=== PATIENT | male | born 1945 | race Caucasian/White ===

== ENCOUNTER 2017-04-25 16:50 | Emergency (ER) | payer MEDICARE ==
[~2017-04-25 16:50] MED LIST: AMIL5 PO; ASMA220A IN; ASPI325T PO; COZA100T PO; FLOV44AE IN; ISOS60 PO; METO25 PO; METO50TA PO; MONT10TA2 PO; MULT1TAB46; POTA20IN3 PO; PRIL20CA PO; VITA500S3 SL
[2017-04-25] MEDS ORDERED: LOSA100T2 PO (17:12)
[2017-04-25] MEDS ORDERED: MONT10TA2 PO (17:12)
[2017-04-25] MEDS ORDERED: AMLO5 PO (17:12)
[2017-04-25] MEDS ORDERED: AMIL5 PO (17:12)
[2017-04-25] MEDS ORDERED: APIX5TAB PO (17:12)
[2017-04-25] MEDS ORDERED: METO50TA PO (17:12)
[2017-04-25] MEDS ORDERED: ISOS120T PO (17:12)
[2017-04-25] MEDS ORDERED: OMEP2.5S (17:12)
--- NOTE | 2017-04-25 17:18 | PD ---
HPI Chief Complaint: Injury Time Seen by Provider: 17:08 Travel History International Travel<30 days: No Contact w/Intl Traveler<30days: No Traveled to known affect area: No History of Present Illness HPI 72-year-old male complains of right fourth finger injury. Patient struck the right fourth finger against an object this morning. Patient states that had increasing pain and swelling of the right ring finger since then. Patient went to urgent care center and referred to the ED for evaluation. Patient states the pain is sharp pain localized the right fourth finger. Patient denies any pain radiation. Recent has history of atrial fibrillation/atrial flutter and on Eliquis. PFSH Social History Tobacco Use: No Allergies-Medications (Allergen,Severity, Reaction): Coded Allergies: baclofen (Unverified Allergy, Unknown, 10/01/16) doxycycline (Unverified Allergy, Unknown, 10/01/16) minocycline (Unverified Allergy, Unknown, 10/01/16) penicillin G (Unverified Allergy, Unknown, 10/01/16) tigecycline (Unverified Allergy, Unknown, 10/01/16) Reported Meds & Prescriptions Reported Meds & Active Scripts Active Reported Prilosec (Omeprazole Magnesium) 2.5 Mg Pow Eliquis (Apixaban) 5 Mg Tab 5 Mg PO BID Singulair (Montelukast Sodium) 10 Mg Tab 10 Mg PO HS Norvasc (Amlodipine Besylate) 5 Mg Tab 5 Mg PO DAILY Losartan-Hydrochlorothiazide 100-25 Mg Tab 1 Tab PO DAILY Amiloride (Amiloride HCl) 5 Mg Tab 5 Mg PO TID Metoprolol Tartrate 50 Mg Tab 75 Mg PO DAILY Isosorbide Mononitrate ER (Isosorbide Mononitrate) 120 Mg Beatriz 120 Mg PO DAILY Vitamin B-12 (Cyanocobalamin) 500 Mcg Sub 500 Mcg SL DAILY Multi Vitamin Daily (Multiple Vitamin) 1 Tab Tab Prilosec 20 mg (Omeprazole) 20 Mg Capcr 20 Mg PO DAILY Aspirin 325 mg (Aspirin) 325 Mg Tab 325 Mg PO DAILY Flovent Hfa (Fluticasone Propionate) 44 Mcg Aer 2 Puff IN BID Potassium Chloride inj (Potassium Chloride) 20 Meq Tab 1 Tab PO DAILY Singulair (Montelukast Sodium) 10 Mg Tab 10 Mg PO HS Asmanex 120 Metered Doses (Mometasone Furoate) 220 Mcg Aer 220 Mcg IN DAILY Cozaar (Losartan Potassium) 100 Mg Tab 100 Mg PO DAILY Amiloride Hcl (Amiloride HCl) 5 Mg Tab 5 Mg PO DAILY Metoprolol Tartrate 25 mg (Metoprolol Tartrate) 25 Mg Tab 25 Mg PO BID Metoprolol Tartrate 50 mg (Metoprolol Tartrate) 50 Mg Tab 50 Mg PO BID Imdur 60 Mg (Isosorbide Mononitrate) 60 Mg Tabcr 60 Mg PO DAILY Review of Systems General / Constitutional: No: Fever Eyes: No: Visual changes HENT: No: Headaches Cardiovascular: No: Chest Pain or Discomfort Respiratory: No: Shortness of Breath Gastrointestinal: No: Abdominal Pain Genitourinary: No: Dysuria Musculoskeletal: Positive: Pain Skin: No Rash Neurologic: No: Weakness Psychiatric: No: Depression Endocrine: No: Polydipsia Hematologic/Lymphatic: No: Easy Bruising Physical Exam Narrative GENERAL: Well-nourished, well-developed patient. SKIN: Focused skin assessment warm/dry. HEAD: Normocephalic. EYES: No scleral icterus. No injection or drainage. NECK: Supple, trachea midline. No JVD or lymphadenopathy. CARDIOVASCULAR: Regular rate and rhythm without murmurs, gallops, or rubs. RESPIRATORY: Breath sounds equal bilaterally. No accessory muscle use. GASTROINTESTINAL: Abdomen soft, non-tender, nondistended. MUSCULOSKELETAL: No cyanosis, or edema. BACK: Nontender without obvious deformity. No CVA tenderness. Patient had deformity and soft tissue swelling tenderness PIP joint right fourth finger. Patient has a finger ring at the base of right fourth finger. Data Data Orders Orders Finger ([id number]) (04/25/17 17:08) Ed Discharge Order (04/25/17 18:09) [facility] Medical Decision Making Medical Screen Exam Complete: Yes Emergency Medical Condition: Yes Differential Diagnosis Differential diagnosis including fracture, dislocation, contusion. Narrative Course 72-year-old male with pain and swelling deformity right fourth finger PIP joint. Patient also has a ring at the base of right fourth finger. Ring was removed. The splint applied. Procedures Procedure Narrative Reduction of right fourth finger dislocation. 1% lidocaine digital block. Traction was applied to the distal aspect of the right fourth finger. The dislocation was reduced. The ring was removed with gentle traction. Finger splint applied. Diagnosis Primary Impression: Dislocation, finger closed Qualified Codes: S63.259A - Unspecified dislocation of unspecified finger, initial encounter Patient Instructions: General Instructions Additional Instructions: Tylenol for pain. Ice elevation. Follow-up with hand surgeon. Med/Other Pt SpecificInfo: No Change to Meds Disposition: 01 DISCHARGE HOME Condition: Stable Aldo Valencia MD Apr 25, 2017 17:18
--- NOTE | 2017-04-25 18:04 | RADRPT ---
EXAM DATE/TIME: 04/25/2017 17:31 [place] COMPARISON: No previous studies available for comparison. INDICATIONS : Right 4th digit dislocation and manipulation. MEDICAL HISTORY : None. SURGICAL HISTORY : None. ENCOUNTER: Initial ACUITY: 1 day PAIN SCORE: 9/10 LOCATION: Right 4th digit FINDINGS: Examination of the fourth digit of the right hand demonstrates no evidence of fracture or dislocation . No radiopaque foreign bodies are seen. The soft tissues are intact. CONCLUSION: 1. Normal alignment. No acute fracture on the current exam. Dale Hampton MD on April 25, 2017 at 18:00 Board Certified Radiologist. This report was verified electronically.
== END 2017-04-25 18:15 | disposition home or self-care (01) ==
LOC: NEPD 16:50
DX: S63.254A Unspecified dislocation of right ring finger, initial encounter (principal); W22.8XXA Striking against or struck by other objects, initial encounter; I48.91 Unspecified atrial fibrillation; I48.92 Unspecified atrial flutter
CPT/HCPCS: 26770; 73140